=== PATIENT | male | born 1985 | race American Indian/Alaskan Native ===

== ENCOUNTER 2022-02-10 00:37 | Emergency (ER) | payer SELFPAY ==
[2022-02-10 03:09] VITALS: BP 156/102
== END 2022-02-10 09:40 | disposition left against medical advice (07) ==
LOC: ED 00:37
DX: M54.9 Dorsalgia, unspecified (principal); M54.2 Cervicalgia; Z53.21 Procedure and treatment not carried out due to patient leaving prior to being seen by health care provider; V89.2XXA Person injured in unspecified motor-vehicle accident, traffic, initial encounter; Y93.89 Activity, other specified; Y92.89 Other specified places as the place of occurrence of the external cause; Y99.8 Other external cause status